=== PATIENT | male | born 1980 | race Caucasian/White ===

== ENCOUNTER 2017-04-27 16:45 | Emergency (ER) | payer SELFPAY ==
[2017-04-27] MEDS ORDERED: Naproxen TAB* 250 MG PO ONE (18:04)
--- NOTE | 2017-04-27 18:27 | RAD ---
INDICATION: Right wrist injury COMPARISON: None TECHNIQUE: AP, lateral, and oblique views were obtained. FINDINGS: There is a small avulsion fracture fibular styloid. No other fractures are evident. The carpals articulate normally. There is soft tissue swelling over the dorsal and ulnar aspect of the wrist. IMPRESSION: CHIP FRACTURE ULNAR STYLOID.
[2017-04-27 18:29] VITALS: BP 121/85
--- NOTE | 2017-04-27 18:48 | UC ---
Hand/Wrist HPI - HPI Summary HPI Summary: The patient comes in today for: 1. Right wrist pain: Onset: 2 days ago. Palliative/provocative: Wrist movement. Quality: Burning. Region: Right wrist. Severity: Rest: 10. Movement: 07/08. However, he is smiling when he has his hand at rest. Time: Constant. Associated symptoms: Numbness: None consistently. 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 * - History Of Current Complaint Chief Complaint: UCUpperExtremity Stated Complaint: RT WRIST INJURY Time Seen by Provider: 04/27/17 18:01 Hx Obtained From: Patient - Allergies/Home Medications Allergies/Adverse Reactions: Allergies Allergy/AdvReac Type Severity Reaction Status Date / Time Penicillins Allergy Unknown Verified 04/27/17 17:48 Reaction Details Home Medications: Home Medications Ibuprofen TAB* [Advil TAB*] 400 mg PO Q6H PRN 04/27/17 [History Confirmed ] PMH/Surg Hx/FS Hx/Imm Hx Previously Healthy: Yes - None of the below diagnosis present. - Surgical History Surgical History: Yes Surgery Procedure, Year, and Place: Surgery on Pinkie finger - Family History Known Family History: Negative: Cardiac Disease, Hypertension Family History: no known cardio vascular issues in patients family - Social History Alcohol Use: Occasionally Substance Use Type: Marijuana Smoking Status (MU): Heavy Every Day Tobacco Smoker Amount Used/How Often: 1PPD Have You Smoked in the Last Year: Yes Household Exposure Type: Cigarettes Review of Systems Constitutional: Negative Skin: Negative Eyes: Negative ENT: Negative Respiratory: Negative Cardiovascular: Negative Gastrointestinal: Negative Genitourinary: Negative Musculoskeletal: Arthralgia All Other Systems Reviewed And Are Negative: Yes Physical Exam Triage Information Reviewed: Yes Appearance: Well-Appearing, No Pain Distress - At rest. With movement of his wrist, there is more discomfort., Well-Nourished Vital Signs: Initial Vital Signs Temp 98.3 F 04/27/17 17:49 Pulse 50 04/27/17 17:49 Resp 16 04/27/17 17:49 BP 121/85 04/27/17 17:49 Pulse Ox 100 04/27/17 17:49 Vital Signs Reviewed: Yes Eyes: Positive: Conjunctiva Clear. Negative: Discharge ENT: Positive: Hearing grossly normal. Negative: Pharyngeal erythema, Nasal congestion, Nasal drainage, TM bulging, TM dull, TM red, Tonsillar swelling, Tonsillar exudate Dental: Negative: Gross Decay/Caries @, Dental Fracture @ Neck: Positive: Supple, Nontender, No Lymphadenopathy. Negative: Nuchal Rigidity Respiratory: Positive: Chest non-tender, Lungs clear, No respiratory distress, No accessory muscle use. Negative: Crackles, Rhonchi Cardiovascular: Positive: RRR, No Murmur Abdomen Description: Positive: Nontender, No Organomegaly, Soft. Negative: Distended, Guarding Musculoskeletal: Positive: Strength Intact, Other: - Patient has tenderness of the distal end of the ulna area. There is no ecchymosis, but there is edema. His movement is limited in extremes due to pain. Neurological: Positive: Alert, Muscle Tone Normal Psychological: Positive: Age Appropriate Behavior, Consolable Skin: Negative: rashes, breakdown Diagnostics - Radiology No standard instances Xray Interpretation: Positive (See Comments) - IMPRESSION: CHIP FRACTURE ULNAR STYLOID. Radiology Interpretation Completed By: Radiologist Hand/Wrist Course/Dx - Course Course Of Treatment: Patient told of x-ray result. Treatment: Cockup splint, Naproxen, and referral to Ortho. - Differential Dx/Diagnosis Differential Diagnosis/HQI/PQRI: Contusion, Fracture Provider Diagnoses: Chip fracture of the distal right ulna. Discharge - Discharge Plan Condition: Stable Disposition: HOME Patient Education Materials: Wrist Fracture in Adults (ED) Referrals: No Primary Care Phys,NOPCP [Primary Care Provider] - Evan Chahal MD [Medical Doctor] - 1 Day (Please call Dr. Chahal's office tomorrow morning for an appointment to assess your right wrist (ulna) chip fracture. )
== END 2017-04-27 19:05 | disposition home or self-care (01) ==
LOC: UCCORT 16:45
DX: S52.611A Displaced fracture of right ulna styloid process, initial encounter for closed fracture (principal); X58.XXXA Exposure to other specified factors, initial encounter; Y93.83 Activity, rough housing and horseplay; Y92.9 Unspecified place or not applicable; Z88.0 Allergy status to penicillin; F17.210 Nicotine dependence, cigarettes, uncomplicated
CPT/HCPCS: 99213; A9270-GY; G0463